=== PATIENT | female | born 1930 | race Caucasian/White ===

== ENCOUNTER → 2016-04-19 | Outpatient (CLI) | payer OTHER, BC ==
[2016-04-19 14:05] LABS: BUN/CREATININE RATIO 21.42 (6-20); CALCIUM 9.8 mg/dL (8.7-10.7); CREATININE 0.7 mg/dL (0.50-1.20); POTASSIUM 5.3 meq/L (3.8-5.2)
[2016-04-19 14:14] LABS: BILIRUBIN,URINE NEGATIVE (NEG); CLARITY,URINE CLEAR (CLEAR); GLUCOSE, URINE (UA) NEGATIVE (NEG); LEUKOCYTE ESTERASE ,URINE SMALL (NEG); NITRATE,URINE NEGATIVE (NEG); OCCULT BLOOD,URINE SMALL (NEG); PROTEIN,URINE NEGATIVE (NEG); UROBILINOGEN,URINE 0.2 mg/dL (0.2)
[2016-04-19 14:51] LABS: URINE SAMPLE TYPE CLEAN CATCH URINE
[2016-04-19 14:52] LABS: SQUAMOUS EPITHELIAL CELL,UR MANY
[2016-04-19 14:53] LABS: BACTERIA,URINE FEW
== END ==
LOC: MOB LAB 12:06
PROVIDERS: ATTEND Nurse Practitioner
DX: I10 Essential (primary) hypertension (principal); R30.0 Dysuria; R82.99 Other abnormal findings in urine
CPT/HCPCS: 36415; 80048; 81001; 87088